=== PATIENT | female | born 1950 | race Caucasian/White ===

== ENCOUNTER 2016-10-13 18:30 | Emergency (ER) | payer MEDICARE ==
[~2016-10-13] VITALS: Ht 170.2 cm; Wt 82.7 kg
[~2016-10-13 18:30] MED LIST: ACYC200C PO; CELE100C85 PO; LISI-571 PO; METF500T4 PO; MULT-1018 PO; PREC VAGINAL
[2016-10-13 18:31] VITALS: BP 149/83; PULSE 81; RESP 20; O2SAT 94
--- NOTE | 2016-10-13 19:11 | DRSVH ---
PROCEDURE: X-RAY CHEST ONE VIEW, PORTABLE ([id number]) INDICATIONS: dizzy TECHNIQUE: One view of the chest was acquired. COMPARISON: [facility], CR, XR CHEST 2VW, 05/30/2015, 8:45. FINDINGS: Surgical changes and devices: None. Lungs and pleura: No pleural effusions or pneumothorax. Lungs are clear. Mediastinum: Mediastinal contours appear normal. Heart size is normal. Bones and chest wall: No suspicious bony lesions. Overlying soft tissues appear unremarkable. IMPRESSION: No acute pulmonary process. Dictated by: Malorie Cruz M.D. on 10/13/2016 at 19:09 Approved by: Malorie Cruz M.D. on 10/13/2016 at 19:09
[2016-10-13 20:32] LABS: BASOPHILS % (AUTO) 0.7 % (0-3); EOSINOPHILS % (AUTO) 2.1 % (0-5); MONOCYTES % (AUTO) 9.1 % (4-12); Mean Corpuscular Volume 87.3 fL (81-100); NEUTROPHILS % (AUTO) 51.7 % (40-74); Platelet Count 281 bil/L (150-400)
[2016-10-13 20:52] LABS: TROPONIN T < 0.010 ug/L (0.0-0.011)
[2016-10-13 20:56] LABS: Magnesium 2.1 mg/dL (1.6-2.6)
--- NOTE | 2016-10-13 21:07 | ED.REPORT ---
HPI-General Illness Date of Service Oct 13, 2016 ED Provider: Jorge Rosario DO Pt is a 66 year old female with a history of type II DM and HTN who presents to the ED complaining of intermittent dizziness onset 2 days ago. She c/o associated headache, spinning sensation, lightheadedness, and difficulty balancing. She denies nausea, ear ringing, tunnel vision, difficulty speaking, difficulty ambulating, recent falls, chest pain, SOB, dysuria, vomiting, and diarrhea. The pt admits to recreational THC use. Pt reports that she was going to open a curtain with her left hand and the movement caused initial spinning episode which was followed by a headache in the occipital region. She states that the symptoms seem specific to her left side movement. Nursing Notes Stated Complaint: LIGHTHEADED,DIZZY,HEADACHE Chief Complaint: General Complaint Nursing Notes Reviewed: Yes Allergies: Coded Allergies: oxycodone (Unverified Allergy, Unknown, 02/01/16) Uncoded Allergies: NSAIDS (Allergy, Unknown, 02/01/16) Scheduled Acyclovir (Acyclovir) 200 Mg Capsule 200 MG PO PRN Celecoxib (Celecoxib) 100 Mg Capsule 100 MG PO BID Estrogens Conjugated (Premarin) 1 Gm Vagcream 0.5 G VAGINAL DAILY Lisinopril (Lisinopril) 5 Mg Tablet 5 MG PO DAILY Metformin (Metformin) 500 Mg Tablet 250 MG PO DAILY Multivitamin (Multi Vitamin Daily) 1 Each Tablet 1 EACH PO DAILY General Time Seen by MD: 21:06 Chief Complaint Other (Pre-syncopal episode) Hx Obtained From: Patient Arrived By: Walk-in Sudden in Onset?: Yes Symptom Duration: Intermittent Severity: Current: No pain currently Severity: Maximum: No pain Recent Healthcare: No recent doctor visit, No recent hospitalization Similar Sx Previous: No Past Medical History Past Medical History Cataract in the left eye Reports: Diabetes mellitus (type II), Hypertension Past Surgical History Partial knee replacement Reports: Appendectomy, Hysterectomy Smoking History Former Smoker Social History Lives in [facility] Alcohol Use: "Social" Drug Use: THC Other Social History: Good social support Ambulatory Status Independent Review of Systems Denies tunnel vision + Difficulty with balance Full Review of Systems Ears / Nose / Throat: Denies: Ear ringing bilateral Respiratory: Denies: Shortness of breath Cardiovascular: Denies: Chest pain GI: Denies: Diarrhea, Nausea, Vomiting Neurologic: Reports: Dizziness, Headache, Lightheaded, Spinning sensation, Syncope (pre-syncopal episode), Denies: Problem walking, Slurred speech, Unable to speak Complete sys rev & neg: except as marked. Physical Exam Vital Signs Vital Signs Date Time Temp Pulse Resp B/P Pulse Ox O2 Delivery O2 Flow Rate FiO2 10/14/16 00:55 35.8 65 16 143/78 97 Room Air 10/14/16 00:26 35.8 65 16 143/78 97 Room Air 10/13/16 18:31 36.8 81 20 149/83 94 Initial VS: Reviewed Neck: Supple, Full range of motion Respiratory: Breath sounds normal, Clear to auscultation, No respiratory distress Cardiovascular: Regular rate & rhythm, Heart sounds normal, Intact distal pulses Abdomen / GI: Soft, Non-tender Extremities: Vascular intact, Neuro intact Skin: Warm, Dry, No cyanosis Neurologic: Alert, Oriented, Nonfocal Psychiatric: Mood/affect normal, Behavior normal General/Constitutional: Awake, Alert, Cooperative Head / Eyes: Atraumatic, Normocephalic Left pupil 1-2 mm, right pupil 3-4 mm; cataract in left eye. Neurologic: Oriented X3, Speech NL Cerebellum sensory motor exam normal. Interpretation & Diagnostics CT ANGIOGRAM NECK: CONCLUSION: 1. No occlusion, dissection, or significant stenosis of the cervical arteries. 2. Mild atherosclerotic calcification at the carotid bulbs bilaterally. CT ANGIOGRAM HEAD: CONCLUSION: 1. No acute intracranial hemorrhage or CT signs of acute territorial infraction. 2. No occlusion, no significant stenosis, or sizable aneurysm of the intracranial vessels. 3. Minimal atherosclerotic calcification of the internal carotid arteries. Transmitted to the ED at 23:10 by Hector Hogan M.D. Lab Results Interpretation Result Diagram: 10/13/16 2018 10/13/16 2018 Test 10/13/16 20:18 White Blood Count 8.0th/mm3 (3.8-10.1) Red Blood Count 4.96mil/mm3 (3.90-5.20) Hemoglobin 14.4g/dL (12.0-15.6) Hematocrit 43.3% (35.0-46.0) Mean Corpuscular Volume 87.3fL (81-100) Mean Corpuscular Hemoglobin 29.0pg (27.0-35.0) Mean Corpuscular Hemoglobin Concent 33.3% (32.0-37.0) Red Cell Distribution Width 14.0% (12.3-15.4) Platelet Count 281bil/L (150-400) Neutrophils (%) (Auto) 51.7% (40-74) Lymphocytes (%) (Auto) 36.2% (14-46) Monocytes (%) (Auto) 9.1% (4-12) Eosinophils (%) (Auto) 2.1% (0-5) Basophils (%) (Auto) 0.7% (0-3) Sodium Level 140mEq/L (134-144) Potassium Level 4.2mEq/L (3.5-5.2) Chloride Level 102mEq/L (97-108) Carbon Dioxide Level 22mmol/L (18-29) Blood Urea Nitrogen 20mg/dL (8-27) Creatinine 0.82mg/dL (0.57-1.00) Estimat Glomerular Filtration Rate 100mL/min (>59) Glucose Level 114mg/dL (60-99) Calcium Level 10.2mg/dL (8.5-10.1) Magnesium Level 2.1mg/dL (1.6-2.6) Total Bilirubin 0.5mg/dL (0.0-1.2) Aspartate Amino Transf (AST/SGOT) 21U/L (0-50) Alanine Aminotransferase (ALT/SGPT) 20U/L (0-32) Alkaline Phosphatase 71U/L (25-165) Troponin T < 0.010ug/L (0.0-0.011) Total Protein 7.8g/dL (6.4-8.4) Albumin 4.3g/dL (3.4-5.0) ECG Interpretation ECG Interpretation: Sinus rhythm with a rate of 77. Left atrial enlargement. Left axis deviation. Abnormal R-wave progression, early transition. Time: 19:37 Interpreted by: ED physician X-Ray Chest Interpretation Chest Xray Interpretation: IMPRESSION: No acute pulmonary process. Dictated by: Malorie Cruz M.D. on 10/13/2016 at 19:09 View: Portable, 1 view Interpretation / Wet Read by: Interpret - Radiologist Re-Eval/Medical Decision Med Decision/Clinical Course This sounds like classical benign positional vertigo. Symptoms came on with head turning and with movement of her left side mainly her left arm. I was a bit concerned that a formal dissection could be involved due to the fact that she had a headache. She had normal cranial nerve exam. We are able to reproduce her symptoms with head turning. CT a milligram of her head and neck was normal. I think stroke is highly unlikely since she has had the symptoms for at least 2 days and has a normal CAT scan. Again her symptoms are waxing and waning and dependent upon her movement. This seems like vertigo. Laboratory work showed that she was a bit dehydrated but otherwise normal. She is given Antivert and she felt great. I will place her on Antivert. Have her follow-up closely. I will be in touch with her tomorrow. Symptoms persist or worsen or any other neurologic stuff will consider advanced imaging as well. She is discharged in stable condition. I consider pulmonary emboli highly unlikely. She was never syncopal. She was never presyncopal. She has a spinning sensation as opposed to undifferentiated dizziness and undifferentiated syncope. Source of Hx: Old records Time of Eval: 23:38 Patient Status: Condition improved Re-Evaluation/Progress Note: Pt rechecked. Updated pt on results. All questions were answered. Time of Eval: 00:45 Re-Evaluation/Progress Note: Pt rechecked. Informed pt of plan for discharge. Pt understands and agrees with plan for discharge. F/U instructions and RTER warnings given. All questions addressed. Counseled Regarding: Diagnosis, Lab results, Need for follow-up, When/why to return to ED Discharge & Departure Primary Impression: Vertigo Disposition: Home Discharge Condition All VS Reviewed: Yes Condition: Stable Patient Instructions: Benign Paroxysmal Positional Vertigo (DC), Vertigo (DC) Additional Instructions: The CAT scan of her brain and the angiogram of her brain and neck were reassuring. Your symptoms seem most likely to be vertigo. Especially with the head turning precipitating your symptoms. Stay well hydrated. Take Antivert 1 every 8 hours for the vertigo type symptoms. Call your doctor in the morning for follow-up this week. If symptoms persist I recommend an MRI. If you have any vomiting, blurred or double vision or any difficulty walking then come right back to the emergency department because these are not symptoms consistent with vertigo. Referrals: Paulina Crooks DO (PCP) Scribe Attestation Portions of this note were transcribed by Delfina Abarca. I, Dr. Rosario personally performed the history, physical exam and medical decision-making; I reviewed and confirmed the accuracy of the information in the transcribed note. Signed by : Bridger Christianson, 10/13/16 and 23:40. copies to: Paulina Crooks Todd P DO Oct 13, 2016 21:07 Delfina Jones Oct 13, 2016 21:40
[2016-10-13] MEDS ORDERED: 0.9% Sodium Chloride 1,000 ML IV ONE (23:40)
[2016-10-14 00:26] VITALS: BP 143/78; PULSE 65; RESP 16; O2SAT 97
[2016-10-14 00:55] VITALS: BP 143/78; PULSE 65; RESP 16; O2SAT 97
--- NOTE | 2016-10-14 08:05 | DRSVH ---
PROCEDURE: CT ANGIO HEAD AND NECK (P) INDICATIONS: dizzy, headache suspect VBI TECHNIQUE: Pre-contrast 4.5 mm thick sections acquired from the foramen magnum to the vertex. After the adminis tration of intravenous contrast, 1 mm thick sections acquired from the aortic arch through the [place]. Post-contrast 4.5 mm thick sections then re-acquired from the foramen magnum to the vert ex. 3-dimensional nvponeb-ssaniviwu-ugvynrydcz (MIP) and/or volume rendering reformats were acquired of the central intracranial vasculature and neck separately. For radiation dose reduction, the foll owing was used: automated exposure control, adjustment of mA and/or kV according to patient size. COMPARISON: None. 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 BRAIN: CSF spaces: Ventricles are normal in size and shape. Basal cisterns are patent. No extra-axial flu id collections. Brain: No midline shift. No intracranial bleeds or masses. Mak-white matter interface appears int act. Skull and face: Calvarium and facial bones appear intact, without suspicious lesions. Orbits appear normal. Sinuses: Sinuses and mastoids are clear. HEAD CT ANGIOGRAPHY: Anterior circulation: Intracranial internal carotid arteries are normal in size and flow. The flow within the paired anterior cerebral arteries is normal and symmetric. The flow within the middle cer ebral arteries is normal and symmetric. The anterior communicating artery is seen. No aneurysms are seen. Posterior circulation: Visualized portions of the vertebral arteries demonstrate normal caliber, and join to form a normal appearing basilar artery. Flow within the posterior cerebral arteries is norm al and symmetric. No aneurysms are seen. NECK CT ANGIOGRAPHY: Carotid system: The great vessels demonstrate a conventional anatomy as they arise from the aortic a [facility]. The origins of the common carotid arteries appear patent. The common carotid arteries demonstr ate normal caliber and courses. The bifurcation regions both show mild atheromatous plaque without s ignificant stenosis. The internal carotid arteries demonstrate normal calibers and courses. Posterior circulation: The origins of the vertebral arteries both appear widely patent. The more damon perior extracranial portions of both vertebral arteries also demonstrate normal courses and calibers. They join to form a normal appearing basilar artery. Soft tissues: Visualized neck soft tissues demonstrate no suspicious abnormalities. There is a 1 cm hypodense nodule in the posterior, superior pole of the right lobe of thyroid. Thyroid ultrasound sug gested for further evaluation. Lung apices are clear. Bones: No suspicious bony lesions. Visualized cervical spine appears normally aligned. IMPRESSION: 1. No acute intracranial abnormality. 2. Normal intracranial vasculature. 3. Mild atheromatous plaque in the carotid bifurcations. No significant stenosis seen however carotid ultrasound might be considered for further evaluation. 4. No findings to suggest vertebral basilar pathology. 5. 1 cm nodule right lobe of thyroid. Findings are concordant with the preliminary report. Dictated by: Michael Florentino M.D. on 10/14/2016 at 7:51 Approved by: Michael Florentino M.D. on 10/14/2016 at 8:02
[2016-11-17] MEDS ORDERED: DOCU-41 PO (15:31)
[2016-11-17] MEDS ORDERED: FINA5TAB9 PO (15:31)
[2016-11-17] MEDS ORDERED: CIPR-231 PO (15:31)
[2016-11-17] MEDS ORDERED: PREC VG (15:31)
[2016-11-17] MEDS ORDERED: HYDR-3825 PO (15:31)
[2016-11-17] MEDS ORDERED: ACYC200C PO (15:31)
[2016-11-17] MEDS ORDERED: METF500T4 PO (15:31)
[2016-11-17] MEDS ORDERED: ONDA-53 PO (15:31)
[2016-11-17] MEDS ORDERED: CELE100C85 PO (15:31)
[2016-11-17] MEDS ORDERED: LISI-571 PO (15:31)
[2016-11-17] MEDS ORDERED: MULT-1018 PO (15:31)
== END 2016-10-14 00:56 | disposition home or self-care (01) ==
LOC: SED 18:30
DX: R42 Dizziness and giddiness (principal); I10 Essential (primary) hypertension; E11.9 Type 2 diabetes mellitus without complications; Z79.891 Long term (current) use of opiate analgesic; Z90.710 Acquired absence of both cervix and uterus; Z79.84 Long term (current) use of oral hypoglycemic drugs
CPT/HCPCS: 36415; 70496; 70498; 71010; 80053; 83735; 84484; 85025; 93005; 96360; 99285; J7030; Q9967

== ENCOUNTER 2016-11-15 08:07 | Emergency (ER) | payer MEDICARE ==
[~2016-11-15] VITALS: Ht 167.6 cm; Wt 81.0 kg
[2016-11-15 08:12] VITALS: BP 137/83; PULSE 107; RESP 16; O2SAT 94
--- NOTE | 2016-11-15 09:26 | ED.REPORT ---
HPI-Abd Pain F 40 and Over Date of Service Nov 15, 2016 ED Provider: Nicola Schultz MD Pt is a 66 year old female with a history of type II diabetes, appendectomy, kidney stone, and HTN, who presents to the ED complaining of sharp left-sided lower abdominal pain onset three days ago at 03:00. She was seen in Urgent Care and diagnosed with a kidney stone at that time. The pt was prescribed four medications including tramadol, Zofran and tamsulosin. Her pain, however, has worsened since and she is now experiencing nausea, vomiting and constipation. She denies fever, chills, or diaphoresis. The pain is exacerbated by sitting up and relieved somewhat by laying down. The pt's last meal was last night around 18:30. She has an appointment with urology on 12/09/2016. Nursing Notes Stated Complaint: PAIN - KIDNEY STONE Chief Complaint: General Complaint Nursing Notes Reviewed: Yes (enercast, Neosenss not reconciled) Allergies: Coded Allergies: oxycodone (Unverified Allergy, Unknown, 11/15/16) Uncoded Allergies: NSAIDS (Allergy, Unknown, 02/01/16) Scheduled Acyclovir (Acyclovir) 200 Mg Capsule 200 MG PO PRN Celecoxib (Celecoxib) 100 Mg Capsule 100 MG PO BID Ciprofloxacin (Ciprofloxacin) 500 Mg Tablet 500 MG PO BID Lactobacillus Acidophilus (Probiotic) 1 Each Capsule 1 EACH PO DAILY Lisinopril (Lisinopril) 5 Mg Tablet 5 MG PO DAILY Metformin (Metformin) 500 Mg Tablet 250 MG PO DAILY Multivitamin (Multi Vitamin Daily) 1 Each Tablet 1 EACH PO DAILY Tamsulosin (Flomax) 0.4 Mg Capsule 0.4 MG PO DAILY Scheduled PRN Docusate Sodium (Colace) 100 Mg Capsule 200 MG PO DAILY PRN PRN For Constipation Hydrocodone-Acetaminophen 7.5-325 mg (Hydrocodone-Acetaminophen 7.5-325 mg) 1 Each Tablet 1-2 TABLET PO Q4H PRN PRN For Pain Ondansetron ODT (Ondansetron ODT) 4 Mg Tab.rapdis 4 MG PO Q8 hr PRN PRN For Nausea Ondansetron ODT (Ondansetron ODT) 8 Mg Tab.rapdis 8 MG PO Q4H PRN PRN For Nausea Sennosides/Docusate Sodium (Senna-Docusate Sodium Tablet) 1 Each Tablet 1-2 EACH PO PRN For Constipation Tramadol (Tramadol) 50 Mg Tablet 50 MG PO Q6 hr PRN PRN For Pain Miscellaneous Medications Estrogens Conjugated (Premarin) 1 Gm Vagcream 0.5 G VAGINAL General Time Seen by MD: 09:06 Chief Complaint Inguinal pain left Hx Obtained From: Patient Arrived By: Walk-in Sudden in Onset?: Yes Onset Occurred: 3 days ago Symptom Duration: Since onset Progression since Onset: Gradually worsening Location: : Abdomen lower Quality: Sharp Severity: Current: Pain level 9 out of 10 Severity: Maximum: Pain level 9 out of 10 Recent Healthcare: No recent hospitalization, Recent doctor visit Similar Sx Previous: Yes Risk Factors )( AAA Risk Stratification Hypertension Risk factors reviewed Past Medical History Past Medical History Notes: Seen at diagnosed w/ 9 x 7 x 5 mm left ureteral stone at the L2-L3 level on November 13 Past Medical History Kidney Stone Cataract in the left eye Endometriosis Reports: Diabetes mellitus, Hypertension Past Surgical History Partial knee replacement Reports: Appendectomy, Hysterectomy Smoking History Former Smoker Social History Lives in [facility] Alcohol Use: "Social" Drug Use: THC Other Social History: Good social support Ambulatory Status Independent Review of Systems Constitutional: Denies: Chills, Fever Respiratory: Denies: Non-productive cough, Shortness of breath Cardiovascular: Denies: Chest pain GI: Reports: Abdominal pain, Constipation, Nausea, Vomiting Musculoskeletal: Reports: Back pain, Denies: Neck pain Complete sys rev & neg: except as marked. Skin: Denies Diaphoresis, Denies Rash Physical Exam Vital Signs Vital Signs (First) Date Time Temp Pulse Resp B/P Pulse Ox O2 Delivery O2 Flow Rate FiO2 11/15/16 08:12 37.4 107 16 137/83 94 Room Air Initial VS: Reviewed, Vital signs abnormal (HR 107) General/Constitutional: Awake, Alert Moderate discomfort Respiratory / Chest: Atraumatic, Breath sounds NL, Breath sounds = bilat, No respiratory distress Cardiovascular: Heart rate NL, Regular rhythm, Heart sounds NL Abdomen: Atraumatic, Soft, Non-tender Back: Atraumatic, Inspection NL, Full range of motion Head / Eyes: Atraumatic, Normocephalic, PERRL, EOMI ENT: Atraumatic, Airway patent, Mucous membranes moist Skin: Atraumatic, Color NL, No rash, Warm, Dry Neurologic: Oriented X3, Speech NL, No motor deficits, No sensory deficits Neck: Atraumatic, Supple, Full range of motion Upper Extremity / MS: Atraumatic, Inspection NL, Full range of motion Lower Extremity / Pelvis / MS: Atraumatic, Inspection NL, Full range of motion Psychiatric: Affect NL, Mood NL Interpretation & Diagnostics Interpretation & Diagnostics: X-ray KUB: IMPRESSION: There is relatively prominent bowel gas and stool including contrast opacified stool within the colon producing quality of visualization, right greater than left. The calculus present in the left ureter 11/13/[address] scanning is of a significant size but often would not pass without urologic intervention. Please correlate clinically. Currently what appears to be possibly this calculus overlies the medial midabdomen but it is uncertain whether this truly represents the calculus. It may be warranted to obtain CT KUB for more accurate assessment. Dictated by: Sabas Beunrostro M.D. on 11/15/2016 at 10:50 Approved by: Sabas Buenrostro M.D. on 11/15/2016 at 10:54 Lab Results Interpretation Result Diagram: 11/15/16 0855 11/15/16 0855 Test 11/15/16 08:45 11/15/16 08:55 Urine Color Yellow (YELLOW) Urine Appearance Cloudy (CLEAR,HAZY) Urine pH 6.0 (5.0-8.0) Urine Specific [place] 1.023 (1.003-1.035) Urine Protein 30mg/dL (NEG,TRACE) Urine Glucose (UA) Negativemg/dL (NEGATIVE) Urine Ketones 80mg/dL (NEGATIVE) Urine Occult Blood Moderate (NEGATIVE) Urine Nitrite Negative (NEGATIVE) Urine Bilirubin Negative (NEGATIVE) Urine Urobilinogen Normalmg/dL (NORMAL) Urine Leukocyte Esterase Large (NEGATIVE) Urine RBC 0-2/hpf (0-2) Urine WBC Packed/hpf (0-5) Urine Epithelial Cells Few/hpf (NONE-MOD) Urine Crystals None seen (NONE SEEN) Urine Bacteria Moderate/hpf (NONE-FEW) Urine Hyaline Casts None/lpf (NONE) Urine Granular Casts Occasional (NONE SEEN) Urine Waxy Casts None seen (NONE SEEN) Urine Red Blood Cell Casts None seen (NONE SEEN) Urine White Blood Cell Casts None seen (NONE SEEN) Urine Mucus None seen (None Seen) Urine Trichomonas None seen (NONE SEEN) Urine Yeast None (NONE SEEN) Urinalysis Comment None Urine Culture Reflexed Indicated White Blood Count 12.7th/mm3 (3.8-10.1) Red Blood Count 4.57mil/mm3 (3.90-5.20) Hemoglobin 13.4g/dL (12.0-15.6) Hematocrit 39.2% (35.0-46.0) Mean Corpuscular Volume 85.8fL (81-100) Mean Corpuscular Hemoglobin 29.3pg (27.0-35.0) Mean Corpuscular Hemoglobin Concent 34.2% (32.0-37.0) Red Cell Distribution Width 12.7% (12.3-15.4) Platelet Count 239bil/L (150-400) Neutrophils (%) (Auto) 81.2% (40-74) Lymphocytes (%) (Auto) 8.0% (14-46) Monocytes (%) (Auto) 10.2% (4-12) Eosinophils (%) (Auto) 0.2% (0-5) Basophils (%) (Auto) 0.2% (0-3) Sodium Level 128mEq/L (134-144) Potassium Level 4.0mEq/L (3.5-5.2) Chloride Level 91mEq/L (97-108) Carbon Dioxide Level 22mmol/L (18-29) Blood Urea Nitrogen 16mg/dL (8-27) Creatinine 0.85mg/dL (0.57-1.00) Estimat Glomerular Filtration Rate 96mL/min (>59) Glucose Level 155mg/dL (60-99) Calcium Level 9.5mg/dL (8.5-10.1) Magnesium Level 1.9mg/dL (1.6-2.6) Total Bilirubin 1.0mg/dL (0.0-1.2) Aspartate Amino Transf (AST/SGOT) 21U/L (0-50) Alanine Aminotransferase (ALT/SGPT) 15U/L (0-32) Alkaline Phosphatase 84U/L (25-165) Total Protein 7.8g/dL (6.4-8.4) Albumin 4.0g/dL (3.4-5.0) Lipase 22U/L (13-60) Hold Cook Top Tube Received (Received) Lab Results Interpretation: CBC positive leukocytosis CMP mild hyponatremia UA packed white cells, positive bacteria Urine culture from urgent care on the positive for greater than 100,000 Escherichia coli, sensitivities however are still pending CT a 17-positive for large ureteral stone Re-Eval/Medical Decision Med Decision/Clinical Course This is a 66-year-old female presents with uncontrolled abdominal pain having been diagnosed with a large 9 mm ureteral stone and possible UTI urgent care on the . She has been given follow-up with urology, but not until December 09. She has had inadequate relief with the tramadol she was given for pain control. Force return to the emergency department. She denies fever, she is given nausea medicine reports is doing fairly well from that end, continues have a little bit of dysuria. She has no prior history of stones. The patient's clinically well-appearing in no acute distress. She does not appear toxic or septic. She has normal vital signs and is not febrile,, her abdomen is soft nontender. I obtained records from urgent care, and contacted lab to try and track down the urine culture-they report it is greater than 100,000 Escherichia coli, but sensitivities have not yet returned. Repeat urine still shows marked white cells, bacteria. Labwork is notable for leukocytosis. Given such a sizable stone that itself likely require intervention, combined with Escherichia coli infection, I consulted urology and reviewed the case with Dr. Epps who reviewed the images, but indicates that the patient can still be treated as an outpatient- but they will expedite the follow-up with the hopes of getting the patient on Thursday or Thursday for intervention. The patient's pain was easily controlled in the department. She received ceftriaxone in the department while I was trying to sort out if cultures had returned. The patient does not appear toxic, given her pain was controlled well here, I do not think the recommendation for the urologist to follow this up as an outpatient or an result. Patient's okay with this as well. The patient's pain medicine is being changed over to hydrocodone, consider tramsulosint, continue Cipro, continue ondansetron when necessary. She apparently cannot tolerate OTC NSAIDs. She is improved at time of discharge, discomfort discharge. Explained she continues to have uncontrolled pain, she develops fever, worsening nausea vomiting or symptoms-she returns directly to the emergency department again. Source of Hx: Old records Re-Evaluation/Progress : Time of Eval: 12:02 Patient Status: Condition improved Re-Evaluation/Progress Note: Pt rechecked. Discussed plan for discharge with pt. Pt understand and agrees with plan. All questions addressed Consultation #1: Referral / Consult Name: Lizbeth Epps MD Consulted With: Urology Call Returned at: 11:10 Note: Consult pts case with Dr. Epps Urologist. Discussed plan for oupatient care. Consultation #2: Referral / Consult Name: Etienne Corbin MD Consulted With: Urology Call Returned at: 11:30 Note: Discussed pt's case with Dr. Kennedy, Urologist. Consultation #3: Referral / Consult Name: Etienne Corbin MD Consulted With: Urology Call Returned at: 11:36 Note: Discussed plan for D/C with Dr. Kennedy. Urologist agrees with plan. Counseled Regarding: Diagnosis, Lab results, Need for follow-up, When/why to return to ED Discharge & Departure Primary Impression: Ureterolithiasis Additional Impression: E. coli urinary tract infection Disposition: Home Discharge Condition All VS Reviewed: Yes Condition: Improved Additional Instructions: 1. I have reviewed your case and images/tests with the urologist Dr. Epps and while it does look like you do need intervention (and should not wait until December 09) and she is working to expedite things so that you can be seen either Thursday (or more likely) Thursday. She indicates their office will call you Thursday morning (if you have not heard from them by 10am, call their office and/or call us at the ED at [phone]) 2. Continue the antibiotic ciprofloxacin. Your urine culture indicates he do have bacteria in the urine, but the sensitivities have not yet returned-however usually Cipro is a outstanding choice. He received an IV dose of the anabolic ceftriaxone today as well. 3. Continue the tamsulosin. 4. Stop the tramadol. 5. For pain take hydrocodone/APAP 7.5/325 1-2 tabs up to every 4-6 hours. Note : This medication does contain narcotic and like tramadol causes drowsiness, and can exacerbate constipation. No driving for at least 4-6 hours after taking 6. Continue ondansetron 8 mg-like dissolve underneath tongue-up to every 4 hours as needed for nausea. 7. I do recommend taking a stool softener such as Colace 200 mg daily to help prevent constipation. 8. Continue to work on drinking plenty of fluids. 9. If you are still having uncontrolled pain, or if he have new or worsening symptoms-increasing pain, fever, worsening vomiting, in the interim return again directly to the emergency department. Referrals: Paulina Crooks DO (PCP) Scribe Attestation Portions of this note were transcribed by Patti Willard and Tamara Stevens. Dr. Antoine Engel personally performed the history, physical exam and medical decision -making; I reviewed and confirmed the accuracy of the information in the transcribed note. copies to: Paulina Crooks Matthew F MD Nov 15, 2016 09:26 Patti Willard Nov 15, 2016 09:48 TAMARA STEVENS Nov 15, 2016 13:39 symptoms-increasing pain, fever, worsening vomiting, in the interim return again directly to the emergency department. Referrals: Paulina Crooks DO (PCP) Scribe Attestation Portions of this note were transcribed by Patti Willard and Tamara Stevens. Dr. Antoine Engel personally performed the history, physical exam and medical decision -making; I reviewed and confirmed the accuracy of the information in the transcribed note. copies to: Paulina Crooks Matthew F MD Nov 15, 2016 09:26 Patti Willard Nov 15, 2016 09:48 TAMARA STEVENS Nov 15, 2016 13:39
[2016-11-15 09:29] LABS: BASOPHILS % (AUTO) 0.2 % (0-3); EOSINOPHILS % (AUTO) 0.2 % (0-5); MONOCYTES % (AUTO) 10.2 % (4-12); Mean Corpuscular Hemoglobin 29.3 pg (27.0-35.0); Mean Corpuscular Volume 85.8 fL (81-100); NEUTROPHILS % (AUTO) 81.2 % (40-74); Platelet Count 239 bil/L (150-400)
[2016-11-15] MEDS ORDERED: Ondansetron 2 mg/mL 2 mL Inj IVPUSH ONE (09:30)
[2016-11-15 09:40] LABS: Magnesium 1.9 mg/dL (1.6-2.6)
[2016-11-15] MEDS: HYDROmorphone 0.5 mg/0.5 mL iSecure Syringe IVPUSH PRN ×2 (09:43→11:46)
[2016-11-15] MEDS ORDERED: Ketorolac 15 mg/mL Inj IVPUSH ONE (09:45)
[2016-11-15] MEDS ORDERED: 0.9% Sodium Chloride 1,000 ML IV ONE (09:45)
[2016-11-15 09:52] LABS: APPEARANCE,URINE CLOUDY (CLEAR,HAZY); COLOR,URINE YELLOW (YELLOW); OCCULT BLOOD,URINE MODERATE (NEGATIVE); UROBILINOGEN,URINE NORMAL (NORMAL)
--- NOTE | 2016-11-15 10:55 | DRSVH ---
PROCEDURE: X-RAY KUB ([id number]) INDICATIONS: L kidney stone F/u TECHNIQUE: One view of the abdomen acquired. COMPARISON: [facility], CT, CT ABD PELVIS W CON, 11/13/2016, 15:21. FINDINGS: Surgical changes and devices: None. Bowel: Bowel gas pattern is normal. Soft tissues: No known suspicious abdominal calcifications in what appears to be a ovoid longitudina lly oriented calculus can be seen overlying the expected position of the left ureter, potentially rep resenting the 9 mm maximal dimension calculus seen in that area 11/13/18. Visualized solid organ cont ours appear normal in size. Bones: No suspicious bony lesions. IMPRESSION: There is relatively prominent bowel gas and stool including contrast opacified stool with in the colon producing quality of visualization, right greater than left. The calculus present in th e left ureter 11/13/[address] scanning is of a significant size but often would not pass without u rologic intervention. Please correlate clinically. Currently what appears to be possibly this calcu nolan overlies the medial midabdomen but it is uncertain whether this truly represents the calculus. I t may be warranted to obtain CT KUB for more accurate assessment. Dictated by: Sabas Buenrostro M.D. on 11/15/2016 at 10:50 Approved by: Sabas Buenrostro M.D. on 11/15/2016 at 10:54
[2016-11-15] MEDS ORDERED: cefTRIAXone Inj 2,000 MG in Dextrose 5% Minibag Plus 50 ML IV ONE (11:15)
[2016-11-15] MEDS ORDERED: ONDA4TAB12 PO (11:19)
[2016-11-15] MEDS ORDERED: TRAM50TA2 PO (11:19)
[2016-11-15] MEDS ORDERED: TAMS0.4C98 PO (11:19)
[2016-11-15] MEDS ORDERED: LACT1CAP65 PO (11:19)
[2016-11-15] MEDS ORDERED: SENN1TAB90 PO (11:19)
[2016-11-15] MEDS ORDERED: CIPR-198 PO (11:19)
[2016-11-15 11:36] VITALS: BP 140/74; PULSE 83; RESP 14; O2SAT 94
[2016-11-15] MEDS ORDERED: HYDROcodone-APAP 5-325 mg Tablet PO ONE (12:05)
[2016-11-15] MEDS ORDERED: DOCU-41 PO (12:28)
[2016-11-15] MEDS ORDERED: ONDA8TAB10 PO (12:28)
[2016-11-15] MEDS ORDERED: HYDR-3825 PO (12:28)
[2016-11-15 13:04] VITALS: BP 112/59; PULSE 85; RESP 20; O2SAT 95
[2016-11-17] MEDS ORDERED: FINA5TAB9 PO (15:31)
[2016-11-17] MEDS ORDERED: LISI-571 PO (15:31)
[2016-11-17] MEDS ORDERED: MULT-1018 PO (15:31)
[2016-11-17] MEDS ORDERED: CELE100C85 PO (15:31)
[2016-11-17] MEDS ORDERED: CIPR-231 PO (15:31)
[2016-11-17] MEDS ORDERED: DOCU-41 PO (15:31)
[2016-11-17] MEDS ORDERED: PREC VG (15:31)
[2016-11-17] MEDS ORDERED: ONDA-53 PO (15:31)
[2016-11-17] MEDS ORDERED: METF500T4 PO (15:31)
[2016-11-17] MEDS ORDERED: HYDR-3825 PO (15:31)
[2016-11-17] MEDS ORDERED: ACYC200C PO (15:31)
== END 2016-11-15 13:05 | disposition home or self-care (01) ==
LOC: SED 08:07
DX: N20.1 Calculus of ureter (principal); N39.0 Urinary tract infection, site not specified; K59.00 Constipation, unspecified; R11.2 Nausea with vomiting, unspecified; I10 Essential (primary) hypertension; E11.9 Type 2 diabetes mellitus without complications; Z96.659 Presence of unspecified artificial knee joint; Z87.891 Personal history of nicotine dependence; Z79.84 Long term (current) use of oral hypoglycemic drugs; Z88.5 Allergy status to narcotic agent
CPT/HCPCS: 36415; 74000; 80053; 81000; 83690; 83735; 85025; 87086; 87088; 96361; 96365; 96375; 99285; J0696; J1170; J2405; J7030

== ENCOUNTER 2016-11-19 11:40 | Day surgery (SDC) | payer MEDICARE ==
[~2016-11-19] VITALS: Ht 167.6 cm; Wt 79.3 kg
[2016-11-19] VITALS (11 sets, daily range): BP systolic 124–184; BP diastolic 66–95; PULSE 81–119; RESP 13–17; O2SAT 92–98
[~2016-11-19 11:40] MED LIST changes: +CIPR-231 PO; +DOCU-41 PO; +FINA5TAB9 PO; +HYDR-3825 PO; +Lactated Ringer's 1,000 ML IV ONE; +ONDA-53 PO; -PREC VAGINAL; +PREC VG; +levoFLOXacin Inj 500 MG in IV Premix 1 EACH IV ONE
[2016-11-19] MEDS ORDERED: fentaNYL-PF 50 mCg/mL 2 mL Inj ONE ×2 (11:41→15:43)
[2016-11-19] MEDS ORDERED: Ondansetron 2 mg/mL 2 mL Inj ONE (11:41)
[2016-11-19] MEDS ORDERED: Propofol 10,000 mCg/mL 20 mL Inj ONE (11:41)
[2016-11-19] MEDS ORDERED: levoFLOXacin 500 mg/100 mL D5W Premix IV ONE (11:57)
[2016-11-19] MEDS: Lactated Ringer's 1,000 ML IV SCH ×2 (12:08→14:33)
[2016-11-19] MEDS ORDERED: TAMS0.4C98 PO (12:18)
--- NOTE | 2016-11-19 14:04 | PCM.HPANE ---
Patient Data Surgeon Admitting Provider: Attending Provider:Lizbeth Epps MD Primary Care Physician:Paulina Crooks DO Other Provider:Catia Joningham Anesthesia Reason for Visit Left Ureteral Stone Ht/WT & BMI Height (Feet): 5 Height (Inches): 6 Weight (Kilograms): 79.3 Body Mass Index 28.00 Allergies Coded Allergies: oxycodone (Unverified Allergy, Unknown, 11/17/16) Uncoded Allergies: NSAIDS (Allergy, Unknown, 02/01/16) Past Anesthesia History Anesthesia History: Denies:: Abnormal Airway, Anesthesia Reactions (PONV), Difficult Intubation, Fam Anesthesia Reaction Diabetes History Hx Diabetes?: Yes Type of Diabetes: Type II Glycemic Control: Oral Medication Current Bedside Blood Glucose: 109 MRSA MRSA: No Medications Hypertension Medication: Yes Home Meds Incl Beta Pia: No Reported Medications Tamsulosin (Flomax)0.4 Mg Capsule0.4 Mg PO DAILY Ref 0 11/19/16 Docusate Sodium (Colace)100 Mg [id number] Mg PO DAILY PRN For Constipation Ref 0 11/17/16 Hydrocodone-Acetaminophen 7.5-325 mg 1 Each Tablet1-2 Tablet PO Q4H PRN For Pain Ref 0 11/17/16 Estrogens Conjugated (Premarin)1 Gm Vagcream1 Gm VG WEEKLY #1 TUBE Ref 0 11/17/16 Ondansetron 4 Mg Tablet4 Mg PO Q4H PRN For Nausea 11/17/16 Multivitamin (Multi Vitamin Daily)1 Each Tablet1 Each PO DAILY 30 Days Ref 0 11/17/16 Metformin 500 Mg [id number] Mg PO DAILY Ref 0 11/17/16 Lisinopril 5 Mg Tablet5 Mg PO DAILY #30 TABLET Ref 0 11/17/16 Ciprofloxacin (Cipro)500 Mg Aisujd719 Mg PO BID Ref 0 11/17/16 Celecoxib 100 Mg Aaqocgt180 Mg PO BID 11/17/16 Acyclovir 200 Mg [id number] Mg PO TID PRN outbreak Ref 0 11/17/16 Discontinued Reported Medications Finasteride 5 Mg Tablet5 Mg PO DAILY 30 Days Ref 0 11/17/16 Lactobacillus Acidophilus (Probiotic)1 Each Capsule1 Each PO DAILY 11/15/16 Sennosides/Docusate Sodium (Senna-Docusate Sodium Tablet)1 Each Tablet1-2 Each PO PRN For Constipation 11/15/16 Tramadol 50 Mg Jvxuco27 Mg PO Q6 hr PRN For Pain Ref 0 11/15/16 Ondansetron ODT 4 Mg Tab.rapdis4 Mg PO Q8 hr PRN For Nausea 11/15/16 Tamsulosin (Flomax)0.4 Mg Capsule0.4 Mg PO DAILY Ref 0 11/15/16 Ciprofloxacin 500 Mg Gbdjum886 Mg PO BID 11/15/16 Multivitamin (Multi Vitamin Daily)1 Each Tablet1 Each PO DAILY 30 Days Ref 0 02/04/16 Estrogens Conjugated (Premarin)1 Gm Vagcream0.5 G Vaginal #90 02/01/16 Metformin 500 Mg [id number] Mg PO DAILY #90 02/01/16 Lisinopril 5 Mg Tablet5 Mg PO DAILY #90 02/01/16 Celecoxib 100 Mg Jhfnoqh477 Mg PO BID #180 02/01/16 Acyclovir 200 Mg [id number] Mg PO PRN #30 02/01/16 Discontinued Scripts Docusate Sodium (Colace)100 Mg Ruepsfm531 Mg PO DAILY PRN For Constipation #60 CAPSULE Ref 0 Prov:Nicola Schultz MD 11/15/16 Ondansetron ODT 8 Mg Tab.rapdis8 Mg PO Q4H PRN For Nausea #15 TABLET Prov:Nicola Schultz MD 11/15/16 Hydrocodone-Acetaminophen 7.5-325 mg 1 Each Tablet1-2 Tablet PO Q4H PRN For Pain #25 TABLET Ref 0 Prov:Nicola Schultz MD 11/15/16 History History of ENT Problems?: Yes HEENT History: Positive for:: Cataracts (left eye since childhood- no surgery) Denies:: Abnormal Airway Difficult Intubation Dysphagia Glaucoma Hearing Problem Sinus Problem TMJ Denture Type: None Teeth Condition: Within Normal Limits Hx of Heart Problems?: Yes Cardiovascular History: Positive for:: Hypertension (off lisinopril for one week- stopped on her own) Denies:: Abdominal Aortic Aneurism Cardiac Surgery Chest Pain Congestive Heart Failure Coronary Artery Disease Edema Pacemaker Hx of Respiratory Problem?: No Respiratory History: Denies:: Asthma COPD Emphysema Oxygen Administration Pneumonia Tuberculosis Use of C-PAP Machine (prior study negative) Use of Inhalers / NEBS Hx Neurologic Problems?: Yes Neurological History: Positive for:: Dizziness (ED visit september 2016 for vertigo , dehydration ) Headaches (with onset of stones, ) Denies:: CVA Multiple Sclerosis Parkinson's Disease Seizures TIA Hx of GI Problems?: No Gastrointestinal History: Denies:: Cirrhosis Diverticulitis Gall Bladder Disease Gastroesphageal Reflux Gastrointestinal Bleeding Heartburn Hepatitis Hiatal Hernia Liver Disease Rectal Bleeding Other GI Pertinent History: constipation is a current problem- Hx of Problems?: Yes Genitourinary History: Positive for:: Kidney Stones (left side current admission problem) Denies:: Urinary Tract Infection HX of Peritoneal Dialysis: No Female Hx: Positive for:: Endometriosis (hysterectomy 1981) Problems with Breasts? (mammograms- being monitored- no surgery) Denies:: Currently (hysterectomy) Skin History: Denies:: History Skin Disorders? Pressure Ulcers Hx Musculoskeletal Problems?: Yes Musculoskeletal History: Positive for:: Back Injury (LOW BACK PAIN) Joint Replacement (left knee ) Osteoarthritis Denies:: Degenerative Joint Fibromyalgia Musculoskeletal Trauma Myasthenia Gravis Systemic Lupus Hx of Psycho/Social Problems?: Yes Psycho Social History: Positive for:: Hx Depression Hx Surgeries?: Yes (KNEE SCOPE, APPY, HYSTERECTOMY, knee replacement) Hx Any Other Health Problems?: Yes Other History: Positive for:: Thyroid Disease (recently found nodule on US- being worked up) Denies:: Cancer (pre cancerous ) History Blood Transfusions: Positive for:: Accept Blood Products? Denies:: Blood Transfuse Reaction Blood Transfusions Hx Diabetes: YesBedside Blood Glucose: 109 Hx Alcohol Use: NoHx Substance Use: No (Occassional marijuana use) Smoking Status: Former Smoker Stop/Bang Treated for Sleep Apnea?: No Do You Have a CPAP Machine?: No P-Blood Pressure: treated: Yes B- Body Mass Index > 35 kg/m2: No A- Age over 50: Yes N- Neck Large Circumference: No G- Gender Male: No Risk Assessment Category Category 1A: Patient has history of documented sleep apnea, and HAS NOT received any narcotic, sedative or anesthesia administration during this stay. Category 1B: Patient has history of documented sleep apnea, and HAS received any narcotic , sedative or anesthesia administration during this stay Category 2: Patient has SUSPECTED Obstructive Sleep Apnea, and HAS received any narcotic , sedative or anesthesia administration during this stay. Category 3: Patient has SUSPECTED Obstructive Sleep Apnea and HAS NOT received narcotic, sedative or anesthesia administration during this stay. Category 4: Outpatient in Procedural Areas with known sleep apnea or who screen positive for High Risk via the STOP/BANG questionnaire. Exam Exam Vital Signs Vital Signs Date Time Temp Pulse Resp B/P Pulse Ox O2 Delivery O2 Flow Rate FiO2 11/19/16 12:31 36.5 81 16 146/83 97 Room Air General Appearance: Alert, Oriented X3, Cooperative, No Acute Distress HEENT/AIRWAY: MP 2 Lungs: Clear to Auscultation, Normal Air Movement Heart: Exam Unremarkable, Regular Rate/Rhythm, No Murmurs/Rubs/Gallops Meds/Labs/Diagnostics Admission Meds Current Medications Lactated Ringer's (Lr) 1,000 ml @ 120 mls/hr Q8H20M IV Last administered on t 12:08; Start 11/19/16 at 05:00; Stop 11/19/16 at 13:19; Status DC Bedside Blood Glucose: 109 Plan Impression Patient chart reviewed, patient interviewed and anesthestic plan with risks, benefits, and alternatives discussed, and informed consent obtained. ASA Physical Status: ASA2 Mod Systemic Disease Anesthetic Plan: GA Bene/Risks/Altern/Consents: Yes HP Complete Prior to Induction: Yes Thomas Forbes MD Nov 19, 2016 14:04
[2016-11-19] MEDS ORDERED: Lactated Ringer's 1,000 ML IV SCH (15:27)
[2016-11-19] MEDS ORDERED: Lactated Ringer's 500 ML IV PRN (15:27)
[2016-11-19] MEDS ORDERED: Ondansetron 2 mg/mL 2 mL Inj IVPUSH PRN (15:30)
[2016-11-19] MEDS ORDERED: Phenylephrine 10,000 mCg/mL Inj IVPUSH PRN (15:30)
[2016-11-19] MEDS ORDERED: Dexamethasone 4 mg/mL Inj IVPUSH PRN (15:30)
[2016-11-19] MEDS ORDERED: EPHEDrine Sulfate 50 mg/mL Inj IVPUSH PRN (15:30)
[2016-11-19] MEDS ORDERED: fentaNYL-PF 50 mCg/mL 2 mL Inj IVPUSH PRN (15:30)
[2016-11-19] MEDS ORDERED: MetoCLOpramide 5 mg/mL 2 mL Inj IVPUSH PRN (15:30)
[2016-11-19] MEDS ORDERED: HYDROmorphone 1 mg/mL Inj IVPUSH PRN (15:30)
[2016-11-19] MEDS ORDERED: HYDROcodone-APAP 5-325 mg Tablet PO PRN (15:35)
--- NOTE | 2016-11-19 16:16 | PCM.ANEP1 ---
Post Anesthesia PACU Phase 1 Assessment Vital Signs Vital Signs Date Time Temp Pulse Resp B/P Pulse Ox O2 Delivery O2 Flow Rate FiO2 11/19/16 16:00 104 13 171/90 94 Room Air 11/19/16 15:50 119 13 158/95 92 Room Air 11/19/16 15:38 101 17 124/75 94 Room Air 11/19/16 15:31 92 14 129/73 98 Simple Mask 8 11/19/16 15:25 93 15 127/66 98 Simple Mask 8 11/19/16 15:20 36.6 91 14 130/70 98 Simple Mask 8 11/19/16 12:31 36.5 81 16 146/83 97 Room Air Anesthetic Administered: GA Level of Alertness: Awake, talking JIMENEZ's with Equal Strength: Yes Pain: No Nausea or Vomiting: No CV Function & Hydration Stable: Yes Airway Device: Oxygen Delivery: Room Air Lungs: Clear to Auscultation, Normal Air Movement Dermatome Level: Full Sensation PACU Phase 2 Assessment Complications: No Follow up Care: No Patient Instructions Provided: N/A Thomas Forbes MD Nov 19, 2016 16:16
--- NOTE | 2016-11-19 16:23 | OP ---
[address] [address] OPERATIVE REPORT PATIENT: ANDER ALMANZAR : 1950 MR#: [id number] ADMIT: 11/19/2016 JOB ID: [id number] DATE OF SURGERY: 11/19/2016 PREOPERATIVE DIAGNOSIS(ES): Left ureteral stent. POSTOPERATIVE DIAGNOSIS(ES): Left ureteral stent. PROCEDURE PERFORMED: 1. Cystoscopy and left retrograde pyelogram. 2. Left ureteroscopy and laser lithotripsy with stone basketing. 3. Left ureteral stent placement. SURGEON: Lizbeth Epps MD LPN CMA: None. FINDINGS: 1. Left ureteral stone at approximately the level of L3. 2. Cystocele. ANESTHESIA: General. ESTIMATED BLOOD LOSS: 2 mL. DRAINS: A 6 x 24 left double-J ureteral stent. COMPLICATIONS: None. CONDITION: Stable. INDICATION FOR PROCEDURE: The patient is a 66-year-old woman with a left ureteral stone. She has had vomiting and severe pain. She has elected to undergo the aforementioned procedure. DESCRIPTION OF PROCEDURE: After informed consent was obtained, the patient was taken to the operating room. A time-out was performed identifying correct patient, surgical site, and procedure. General anesthesia was smoothly induced. She was given intravenous antibiotics just prior to the start of the procedure. She was placed in the lithotomy position and all pressure points were identified and appropriately padded. Her genitals were then prepped and draped in the usual sterile fashion. The patient has a significant cystocele. The 22-Senegalese rigid cystoscope was applied to the patient's urethral meatus and advanced into the bladder. The bladder was drained. The ureteral orifices were in a somewhat orthotopic position, though given the cystocele they were quite drawn towards the bladder neck and inferior. The left ureteral orifice was cannulated with a 5-Senegalese open-ended Pollack catheter. Retrograde pyelogram was performed. There appeared to be a stone and filling defect at the level of L3 within the left ureter consistent with her stone. A wire was then used to cannulate the Pollack and it was navigated to the renal pelvis as seen under fluoroscopy. The Pollack was then backloaded off the wire. A second wire was placed into the renal pelvis as seen under fluoroscopy. It was attempted to perform semi-rigid ureteroscopy though given the cystocele and the ureteral orifice morphology it was not possible to do so. A 12/14 access sheath, 28 cm long was placed over one of the wires and advanced into the distal ureter inferior to the level of the suspected location of the stone. Flexible ureteroscopy then commenced. The stone was seen in the ureter and it migrated back into the upper pole. A 273 micron laser fiber wire was used to break the stone into little pieces. A Zero Tip Nitinol basket was used to basket the stone fragments. These were passed off the table for stone analysis. Retrograde pyelogram was again performed. Every calyx was examined. There were no other stones. The ureteroscope was then brought down to the level of the access sheath and both were brought down in tandem. The ureter appeared normal. The remaining Sensor tip wire was then backloaded into the cystoscope and a 6 x 24 double-J ureteral stent was loaded over it and advanced to the renal pelvis as seen on fluoroscopy. The wire was then removed, leaving a nice coil in the patient's bladder as seen under direct vision. The patient was then reversed from general anesthesia and taken to PACU in good stable condition. NAM
--- NOTE | 2016-11-19 22:08 | DRSVH ---
PROCEDURE: X-RAY RETROGRADE UROGRAPHY INDICATIONS: LEFT SIDED CYSTO WITH STENT PLACEMENT TECHNIQUE: 3 intra-operative images acquired by the Urology service. COMPARISON: [facility], CT, CT ABD PELVIS W CON, 11/13/2016, 15:21. [facility], CR, XR KUB, 11/15/2016, 10:17. FINDINGS: Exam is limited to 3 submitted images. Within these limits, roughly 1 cm rounded intralum inal filling defect visualized within the mid to distal portion of the opacified left ureter which ma y represent a small retained stone. Partially opacified left renal collecting system appears grossly normal. No extravasation of contrast media. Renal stent placed. IMPRESSION: 1. Possible retained stone versus gas bubble within the mid to distal left ureter. Correlate with re al time examination. 2. Ureteral stent placement. Dictated by: Beka SMITH Interpreted: Shante Ferguson MD on 11/19/2016 at 16:16 Approved by: Shante Ferguson M.D. on 11/19/2016 at 22:07
[2016-11-24 16:08] LABS: Stone Color Brown (.)
== END 2016-11-19 23:59 | disposition home or self-care (01) ==
LOC: SAS 11:40
PROVIDERS: ATTEND Urology
DX: N20.1 Calculus of ureter (principal); N81.10 Cystocele, unspecified; I10 Essential (primary) hypertension; E11.9 Type 2 diabetes mellitus without complications; M19.90 Unspecified osteoarthritis, unspecified site; G47.33 Obstructive sleep apnea (adult) (pediatric); F32.9 Major depressive disorder, single episode, unspecified; F12.90 Cannabis use, unspecified, uncomplicated; Z87.440 Personal history of urinary (tract) infections; Z79.890 Hormone replacement therapy; Z79.84 Long term (current) use of oral hypoglycemic drugs; Z87.891 Personal history of nicotine dependence; Z96.652 Presence of left artificial knee joint; Z90.710 Acquired absence of both cervix and uterus
CPT/HCPCS: 52356; 74420; 82360; C2617; J2175; J2250; J2405; J2704; J2765; J3010; J7120; Q9967